=== PATIENT | female | born 1995 | race Caucasian/White ===

== ENCOUNTER 2018-07-02 16:09 | Emergency (ER) | payer OTHER ==
[2018-07-02 16:20] VITALS: BP 103/69; PULSE 89; TEMP 98.1; BMI 34.2
--- NOTE | 2018-07-02 16:53 | PDOC ---
History of Present Illness - General Chief Complaint: Allergic Reaction Stated Complaint: ALLERGIC REACTION Time Seen by Provider: 07/02/18 16:30 History Source: Patient Exam Limitations: No Limitations - History of Present Illness Initial Comments: 07/02/18 16:46 Patient is a 22-year-old female with no past medical history who presents to the emergency department today for a patient to her upper lip. Patient states last night she ate peanuts and had an ALLERGIC reaction. She states she felt her throat closing and her mouth felt itchy. She took Benadryl with relief of her symptoms. She woke up this morning and noticed a rash to her upper lip. She states that the rash is tingly. Denies difficulty breathing now, shortness of breath, throat pain and difficulty swallowing. Past History - Travel Traveled outside of the country in the last 30 days: No Close contact w/someone who was outside of country & ill: No - Past Medical History Allergies/Adverse Reactions: Allergies Allergy/AdvReac Type Severity Reaction Status Date / Time peanuts ? Allergy Uncoded 07/02/18 16:17 Home Medications: Ambulatory Orders Diphenhydramine HCl [Benadryl -] 50 mg PO ONCE 07/02/18 COPD: No - Suicide/Smoking/Psychosocial Hx Smoking History: Current some day smoker Have you smoked in the past 12 months: Yes Information on smoking cessation initiated: No Review of Systems - Review of Systems Able to Perform ROS?: Yes Comments:: 07/02/18 16:49 CONSTITUTIONAL: Absent: fever, chills, diaphoresis, generalized weakness, malaise, loss of appetite HEENT: Absent: rhinorrhea, nasal congestion, throat pain, throat swelling, difficulty swallowing, mouth swelling, ear pain, eye pain, visual Changes CARDIOVASCULAR: Absent: chest pain, loss of consciousness, palpitations, irregular heart rate, peripheral edema RESPIRATORY: Absent: cough, shortness of breath, dyspnea with exertion, orthopnea, wheezing, stridor, hemoptysis GASTROINTESTINAL: Absent: abdominal pain, abdominal distension, nausea, vomiting, diarrhea, constipation, melena, hematochezia GENITOURINARY: Absent: dysuria, frequency, urgency, hesitancy, hematuria, flank pain, genital pain MUSCULOSKELETAL: Absent: myalgia, arthralgia, joint swelling SKIN: Present: lesion to the Upper lip Absent: rash, itching, pallor NEUROLOGIC: Absent: headache, focal weakness or paresthesias, dizziness, unsteady gait, seizure, mental status changes, bladder or bowel incontinence PSYCHIATRIC: Absent: anxiety, depression, suicidal or homicidal ideation, hallucinations. Is the patient limited Beninese proficient: No *Physical Exam - Vital Signs Last Vital Signs Temp Pulse Resp BP Pulse Ox 98.1 F 89 16 103/69 96 07/02/18 16:18 07/02/18 16:18 07/02/18 16:18 07/02/18 16:18 07/02/18 16:18 - Physical Exam Comments: 07/02/18 16:53 GENERAL: Well developed, well nourished. Awake and alert. No acute distress. HEENT: Normocephalic, atraumatic. PERRLA, EOMI. No conjunctival pallor. Sclera are non- icteric. Moist mucous membranes. Oropharynx is clear. Uvula is midline with no swelling NECK: Supple. Full ROM. No JVD. Carotid pulses 2+ and symmetric, without bruits. No thyromegaly. No lymphadenopathy. CARDIOVASCULAR: Regular rate and rhythm. No murmurs, rubs, or gallops. Distal pulses are 2+ and symmetric. PULMONARY: No evidence of respiratory distress. Lungs clear to auscultation bilaterally. No wheezing, rales or rhonchi. ABDOMINAL: Soft. Non-tender. Non-distended. No rebound or guarding. No organomegaly. Normoactive bowel sounds. MUSCULOSKELETAL Normal range of motion at all joints. No bony deformities or tenderness. No CVA tenderness. EXTREMITIES: No cyanosis. No clubbing. No edema. No calf tenderness. SKIN: Eryethematous vesicular lesion to the L upper lip. Warm and dry. Normal capillary refill. No rashes. No jaundice. NEUROLOGICAL: Alert, awake, appropriate. Cranial nerves 2-12 intact. No deficits to light touch and temperature in face, upper extremities and lower extremities. No motor deficits in the in face, upper extremities and lower extremities. Normoreflexic in the upper and lower extremities. Normal speech. Toes are down- going bilaterally. Gait is normal without ataxia. PSYCHIATRIC: Cooperative. Good eye contact. Appropriate mood and affect. Medical Decision Making - Medical Decision Making 07/02/18 16:55 Patient is a 20-year-old female with no past medical history presenting department today for a cold sore to her left upper lip. Patient also reports an ALLERGIC reaction yesterday the patient. Her symptoms resolved with Benadryl at home. On exam patient with vesicular lesion to her left upper lip consistent with a cold sore. Patient reports a ALLERGIC reaction where she had the sensation of her throat closing difficulty breathing. We'll prescribe an EpiPen to carry. ALLERGY referral given. Patient up with her primary care doctor this week. Discharge home I discussed the physical exam findings, ancillary test results and final diagnoses with the patient. I answered all of the patient's questions. The patient was satisfied with the care received and felt comfortable with the discharge plan and treatment plan. The Patient agrees to follow up with the primary care physician/specialist within 24-72 hours. Return precautions were given. *DC/Admit/Observation/Transfer Diagnosis at time of Disposition: Cold sore, Hx of allergic reaction - Discharge Dispostion Disposition: HOME Condition at time of disposition: Stable Decision to Admit order: No - Referrals Referrals: Jaime Lim MD [Staff Physician] - - Patient Instructions Printed Discharge Instructions: DI for General Allergic Reactions, DI for Cold Sores Additional Instructions: You have a cold sore. Based on her history today it sounds like he also had an ALLERGIC reaction. Please avoid eating anything with peanuts better or peanuts. Your prescribed an EpiPen. If you come into contact with peanuts or peanut butter and feel the same shortness of breath or difficulty breathing please use the EpiPen and report time emergency department immediately. You may use Abreva for the cold sore. This [id number]. Follow-up with the automated logistics specialist prescribed. Also keep your appointment with her primary care doctor. Return to emergency Department if you use her EpiPen, if you shortness of breath , difficulty breathing, or any changes in your symptoms. - Post Discharge Activity Forms/Work/School Notes: Back to Work
[2018-07-02] MEDS ORDERED: diphenhydrAMINE HCL 25 MG CAPSULE (FP) PO ONE ×2 (16:56→17:12)
== END 2018-07-02 17:15 | disposition home or self-care (01) ==
LOC: JERFT 16:09
DX: B00.1 Herpesviral vesicular dermatitis (principal); T78.40XA Allergy, unspecified, initial encounter
CPT/HCPCS: 99281-25

== ENCOUNTER 2021-03-07 21:56 | Emergency (ER) | payer OTHER ==
[2021-03-07 22:24] VITALS: TEMP 98.1; BMI 35.1
[2021-03-07] MEDS ORDERED: IBUPROFEN 600 MG TABLET (FP) PO ONE ×2 (22:34→22:39)
[2021-03-07 23:51] VITALS: BP 122/80; PULSE 80
== END 2021-03-07 23:50 | disposition home or self-care (01) ==
LOC: JER 21:56
DX: S02.2XXA Fracture of nasal bones, initial encounter for closed fracture (principal)
CPT/HCPCS: 70160-TC-FY; 99283-25

== ENCOUNTER 2022-05-01 16:55 | Emergency (ER) | payer OTHER ==
[2022-05-01 17:26] VITALS: BP 124/89; PULSE 67; RESP 18; TEMP 98; BMI 40.1
[2022-05-01] MEDS ORDERED: IBUPROFEN 600 MG TABLET (FP) PO ONE ×2 (17:38→17:45)
== END 2022-05-01 18:55 | disposition home or self-care (01) ==
LOC: JERFT 16:55
DX: S00.83XA Contusion of other part of head, initial encounter (principal); W01.0XXA Fall on same level from slipping, tripping and stumbling without subsequent striking against object, initial encounter
CPT/HCPCS: 70450-TC; 70486-TC; 99284-25

== ENCOUNTER 2022-10-24 03:14 | Emergency (ER) | payer OTHER ==
[2022-10-24 03:28] VITALS: BP 138/90; PULSE 94; RESP 18; TEMP 97.9; BMI 41.5
[2022-10-24] MEDS ORDERED: diphenhydrAMINE HCL 25 MG CAPSULE (FP) PO ONE ×2 (04:15→04:22)
== END 2022-10-24 04:58 | disposition home or self-care (01) ==
LOC: JER 03:14
DX: F41.0 Panic disorder [episodic paroxysmal anxiety] (principal)
CPT/HCPCS: 71046-TC-FY; 93005; 93010; 99284-25

== ENCOUNTER 2023-08-30 10:58 | Emergency (ER) | payer OTHER ==
[2023-08-30 11:16] VITALS: BP 117/72; PULSE 74; RESP 18; TEMP 98.4; BMI 38.4
[2023-08-30] MEDS ORDERED: ACETAMINOPHEN 1000 MG/100 ML BAG IVPB ONE (11:57)
[2023-08-30] MEDS ORDERED: METOCLOPRAMIDE HCL INJECTION 10 MG/2 ML VIAL IVPUSH ONE (11:58)
[2023-08-30] MEDS ORDERED: ACETAMINOPHEN INJECTION 100 ML IVPB ONE (12:13)
[2023-08-30] MEDS ORDERED: METOCLOPRAMIDE HCL INJECTION 10 MG/2 ML VIAL ONE (12:13)
== END 2023-08-30 13:56 | disposition home or self-care (01) ==
LOC: JER 10:58 → JERFT 10:58
PROC: 3E033NZ Introduction of Analgesics, Hypnotics, Sedatives into Peripheral Vein, Percutaneous Approach (ICD-10-PCS; principal; 2023-08-30)
PROC: 3E033GC Introduction of Other Therapeutic Substance into Peripheral Vein, Percutaneous Approach (ICD-10-PCS; 2023-08-30)
DX: S00.03XA Contusion of scalp, initial encounter (principal); M79.644 Pain in right finger(s); G44.319 Acute post-traumatic headache, not intractable; M54.6 Pain in thoracic spine; H53.8 Other visual disturbances; W10.9XXA Fall (on) (from) unspecified stairs and steps, initial encounter; Y93.01 Activity, walking, marching and hiking
CPT/HCPCS: 70450-TC; 73110-TC-RT-FY; 73130-TC-RT-FY; 84703; 99285-25

== ENCOUNTER 2024-09-03 11:30 | Emergency (ER) | payer OTHER ==
[2024-09-03 11:51] VITALS: BP 138/88; PULSE 95; RESP 18; TEMP 97.9; BMI 41.9
[2024-09-03] MEDS ORDERED: ACETAMINOPHEN 500 MG TABLET (FP) ONE (12:18)
[2024-09-03] MEDS: ACETAMINOPHEN 500 MG TABLET (FP) PO ONE (12:26)
== END 2024-09-03 16:07 | disposition home or self-care (01) ==
LOC: JER 11:30
DX: R51.9 Headache, unspecified (principal); R68.84 Jaw pain; Y04.8XXA Assault by other bodily force, initial encounter
CPT/HCPCS: 70450-TC; 70486-TC; 99284-25